=== PATIENT | female | born 1995 | race Caucasian/White ===

== ENCOUNTER 2024-07-13 13:48 | Emergency (ER) | payer OTHER ==
[~2024-07-13] VITALS: Ht 167.6 cm; Wt 81.6 kg
[2024-07-13 13:50] VITALS: BP_SYST 166; PULSE 85; RESP 18; TEMP 97.8; O2SAT 99
[2024-07-13] MEDS: NACL 0.9% 1,000 ML IV ONE (14:34)
[2024-07-13 14:54] LABS: BASOPHILS % (AUTO) 0.6 % (0.0-2.0); EOSINOPHILS # (AUTO) 0.2 K/uL (0.0-0.4); LYMPHOCYTES # (AUTO) 1.7 K/uL (1.0-5.5); LYMPHOCYTES % (AUTO) 24.6 % (20.5-51.5); MEAN CORPUSCULAR HEMOGLOBIN 30 pg (27-31); MEAN CORPUSCULAR HGB CONC 34 % (32-36); MEAN CORPUSCULAR VOLUME 88 fL (79.0-98.0); MONOCYTES # (AUTO) 0.4 K/uL (0.0-1.0); MONOCYTES % (AUTO) 6.1 % (1.7-9.3); NEUTROPHILS # (AUTO) 4.4 K/uL (1.8-7.7); NEUTROPHILS % (AUTO) 65.7 % (40.0-70.0); PLATELET COUNT (AUTO) 245 K/uL (130-430); RED BLOOD CELL COUNT(AUTO) 4.64 MIL/uL (4.2-6.2); RED CELL DISTRIBUTION WIDTH 13.6 % (9.0-15.0); WHITE BLOOD COUNT (AUTO) 6.8 K/uL (4.8-10.8)
[2024-07-13 14:58] LABS: CALCIUM 8.7 mg/dL (8.4-11.0); CREATININE 0.83 mg/dL (0.55-1.30); POTASSIUM 4.2 mmol/L (3.5-5.1)
[2024-07-13] MEDS: INSULIN REGULAR, HUMAN 10 UNITS/0.1 ML, 3 ML VIAL IVP ONE (15:34)
[2024-07-13 15:47] VITALS: BP_SYST 155; PULSE 83; RESP 22; TEMP 97.6; O2SAT 97
== END 2024-07-13 15:49 | disposition home or self-care (01) ==
LOC: SED 13:48
DX: T67.8XXA Other effects of heat and light, initial encounter (principal); E11.65 Type 2 diabetes mellitus with hyperglycemia; I10 Essential (primary) hypertension; Z88.0 Allergy status to penicillin; X58.XXXA Exposure to other specified factors, initial encounter; Y93.01 Activity, walking, marching and hiking; Y92.89 Other specified places as the place of occurrence of the external cause; Y99.8 Other external cause status
CPT/HCPCS: 99284; 96360; 80048; 85025; 36415; 93005; 82948; J7030